=== PATIENT | female | born 1955 | race Caucasian/White ===

== ENCOUNTER → 2017-12-04 | Outpatient (CLI) | payer BC ==
[2017-12-04 16:00] LABS: HEMATOCRIT 43.2 % (36.0-47.0); HEMOGLOBIN 14.3 g/dl (12.0-16.0); MEAN CORPUSCULAR HEMOGLOBIN 29.4 pg (27.0-33.0); MEAN CORPUSCULAR HGB CONC 33.1 g/dl (32.0-36.5); MEAN CORPUSCULAR VOLUME 88.7 fl (80.0-96.0); PLATELET COUNT, AUTOMATED 252 10^3/uL (150-450); RED BLOOD COUNT 4.87 10^6/uL (4.00-5.40); RED CELL DISTRIBUTION WIDTH 12.8 % (11.5-14.5); WHITE BLOOD COUNT 6.2 10^3/uL (4.0-10.0)
[2017-12-04 16:29] LABS: C REACTIVE PROTEIN QUANTITATIV < 0.30 MG/DL (0.00-0.30); RHEUMATOID FACTOR QUANT < 10.0 IU/ML (0-15.0)
[2017-12-04 16:46] LABS: ERYTHROCYTE SEDIMENTATION RATE 5 mm/hr (0-30)
[2017-12-09 00:06] LABS: ANGIOTENSIN 1 CONVERTING ENZYM 36 U/L (14-82); ANTI DOUBLE STRAND-DNA AB <1 IU/mL (0-9); ANTINUCLEAR ANTIBODIES DIRECT Negative (Negative); Lyme Disease IgG/IgM Antibodie <0.91 ISR (0.00-0.90); Lyme Disease IgM Ab Quantitati <0.80 index (0.00-0.79); SJOGREN'S ANTI SS-A <0.2 AI (0.0-0.9); SJOGREN'S ANTI SS-B 0.2 AI (0.0-0.9); T PALLIDUM AB (FTA-AB) Non Reactive (Non Reactive)
== END ==
LOC: M LAB 15:08
DX: H15.009 Unspecified scleritis, unspecified eye (principal)
CPT/HCPCS: 71046

== ENCOUNTER → 2019-04-28 | Outpatient (CLI) | payer MEDICARE, BC ==
[~2019-04-28] MED LIST: ACET500T15 PO; CALC600T57 PO; COLA100C5 PO; OXYC1TAB23 PO; PERCOCET PO; PREV1CAP PO; SUCR1TAB56 PO; ZYRT10CA5 PO; vitamin d OR
--- NOTE | 2019-04-28 12:40 | REPMRS ---
Patient History The patient states she had a clinical breast exam in 09/2018. No known family history of cancer. Took unspecified hormones for 5 years. Digital Woman Screen Mammo: April 28, 2019 - Exam #: [id number] Bilateral CC and MLO view(s) were taken. Technologist: Maria L Escobar, Technologist Prior study comparison: August 28, 2016, digital woman screen mammo performed at [facility]. May 29, 2015, digital woman screen mammo performed at [facility]. April 15, 2014, digital woman screen mammo performed at [facility]. FINDINGS: There are scattered fibroglandular densities. There has been no change in the appearance of the mammogram from the prior studies. There is a mild amount of scattered fibroglandular density which is fairly symmetric. There is no interval development of dominant mass, architectural distortion, or grouped microcalcification suggestive of malignancy. 3-D tomosynthesis shows no additional findings. Assessment: BI-RADS/ACR category 1 mammogram. Negative Mammogram. Recommendation Routine screening mammogram of both breasts in 1 year (for women over age 40). This patient's Lifetime Breast Cancer Risk is estimated at 5.2 %. This mammogram was interpreted with the aid of an FDA-approved computer-aided dectection system. Electronically Signed By: French Elliott MD 04/28/19 1219
== END ==
LOC: M WHC 11:24
PROVIDERS: ATTEND Nurse Practitioner Family
DX: Z12.31 Encounter for screening mammogram for malignant neoplasm of breast (principal)

== ENCOUNTER → 2019-05-12 | Outpatient (CLI) | payer MEDICARE, BC ==
[2019-05-12 14:51] LABS: BASO % 0.5 % (0.0-1.0); EOS # 0.1 10^3/uL (0.0-0.50); EOS % 1.2 % (0.0-3.0); HEMOGLOBIN 14.2 g/dl (12.0-15.5); LYMPH # 1.7 10^3/uL (1.5-4.5); LYMPH % 30.1 % (24.0-44.0); MEAN CORPUSCULAR HEMOGLOBIN 30.1 pg (27.0-33.0); MEAN CORPUSCULAR HGB CONC 32.3 g/dl (32.0-36.5); MEAN CORPUSCULAR VOLUME 93.4 fl (80.0-96.0); MONO # 0.6 10^3/uL (0.0-0.8); NEUTROPHILS # 3.3 10^3/uL (1.8-7.7); PLATELET COUNT, AUTOMATED 219 10^3/uL (150-450); RED BLOOD COUNT 4.71 10^6/uL (4.00-5.40); WHITE BLOOD COUNT 5.6 10^3/uL (4.0-10.0)
[2019-05-12 15:25] LABS: ERYTHROCYTE SEDIMENTATION RATE 3 mm/hr (0-30)
[2019-05-12 15:35] LABS: ALBUMIN 4.2 GM/DL (3.2-5.2); ALT/SGPT 25 U/L (12-78); BILIRUBIN,TOTAL 0.5 MG/DL (0.2-1.0); BLOOD UREA NITROGEN 17 MG/DL (7-18); C REACTIVE PROTEIN QUANTITATIV < 0.30 MG/DL (0.00-0.30); CALCIUM LEVEL 8.8 MG/DL (8.8-10.2); CARBON DIOXIDE LEVEL 29 MEQ/L (21-32); CHLORIDE LEVEL 108 MEQ/L (98-107); GLOMERULAR FILTRATION RATE > 60.0 (>45); GLUCOSE, FASTING 80 MG/DL (70-100); POTASSIUM SERUM 3.9 MEQ/L (3.5-5.1); RHEUMATOID FACTOR QUANT < 10.0 IU/ML (<15.0); SODIUM LEVEL 142 MEQ/L (136-145); TOTAL PROTEIN 7.2 GM/DL (6.4-8.2); URIC ACID 3.9 MG/DL (2.6-6.0)
--- NOTE | 2019-05-12 15:49 | REP ---
Right hand four views: There is joint space narrowing with a variable osteophyte growth at the MCP joints of the index, middle and ring fingers. The PIP and DIP articulations and carpal articulations are unremarkable. This pattern of joint space narrowing is nonspecific and may represent a mixed arthropathy. Mineralization is normal. There are no calcifications. Impression: Joint space narrowing as described. Left hand four views: There is joint space narrowing with variable osteophytic growth of the index, middle and ring fingers and fifth digit. Mineralization is normal. There are no calcifications. The PIP, DIP and carpal joint spaces are unremarkable. Impression: Nonspecific joint space narrowing. This may represent a mixed arthropathy. Electronically Signed by Hector Easton MD 05/12/2019 03:41 P
--- NOTE | 2019-05-12 15:52 | REP ---
Right knee five views : There is no fracture or dislocation. Mineralization and joint spaces are normal. There are no calcifications or foreign bodies. Impression: Negative right knee . Electronically Signed by Hector Easton MD 05/12/2019 03:44 P
--- NOTE | 2019-05-12 15:52 | REP ---
Bilateral knees AP standing view: There is no joint space narrowing of the medial or lateral compartments on the right or the left. Mineralization is normal. There are no calcifications. Impression: Negative AP standing view of both knees. Electronically Signed by Hector Easton MD 05/12/2019 03:44 P
--- NOTE | 2019-05-12 16:22 | REP ---
HISTORY: History of arthritis. There is mild bilateral inferior sacroiliac joint marginal osteophytosis. The SI joints are nonfused and there is no abnormal whiskering. IMPRESSION: Chronic changes as described above. Electronically Signed by Deepak Lino DO 05/12/2019 04:23 P
[2019-05-20 00:06] LABS: ANA (HEP2) Positive (.); ANGIOTENSIN 1 CONVERTING ENZYM 37 U/L (14-82); CYCLIC CITRULLINATED PEPTIDE 5 units (0-19); HLA-B27 Negative (.); Lyme Disease IgG/IgM Antibodie <0.91 ISR (0.00-0.90); Lyme Disease IgM Ab Quantitati <0.80 index (0.00-0.79)
== END ==
LOC: M LAB 14:06
PROVIDERS: ATTEND Internal Medicine Rheumatology
DX: M19.041 Primary osteoarthritis, right hand (principal); M19.042 Primary osteoarthritis, left hand; Z79.899 Other long term (current) drug therapy
CPT/HCPCS: 36415; 72202; 73130; 73564; 80053; 81374; 82164; 84550; 85025; 85652; 86038; 86140; 86200; 86256; 86431; 86480; 86617; G0463

== ENCOUNTER → 2019-05-26 | Outpatient (CLI) | payer MEDICARE, BC | LOC: M LAB 12:12 | PROVIDERS: ATTEND Internal Medicine Rheumatology | DX: H15.002 Unspecified scleritis, left eye (principal) | CPT/HCPCS: 36415; 86256; G0463 ==

== ENCOUNTER → 2020-03-24 | Outpatient (CLI) | payer MEDICARE, BC ==
[~2020-03-24] MED LIST changes: +ECOT81TA5 PO; +ESTR10TA VG; +GABA-282 PO; +GNP250TA9 PO; +MONT10TA10 PO; +SERT25TA21 PO; -vitamin d OR; +vitamin d PO
[2020-03-24 13:58] LABS: BASO # 0.1 10^3/uL (0.0-0.2); EOS # 0.1 10^3/uL (0.0-0.5); EOS % 1.6 % (0.0-3.0); HEMATOCRIT 44.1 % (36.0-47.0); HEMOGLOBIN 13.9 g/dl (12.0-15.5); LYMPH # 1.9 10^3/uL (1.5-5.0); MEAN CORPUSCULAR HGB CONC 31.5 g/dl (32.0-36.5); MEAN CORPUSCULAR VOLUME 91.9 fl (80.0-96.0); MONO # 0.6 10^3/uL (0.0-0.8); MONO % 11.8 % (0.0-5.0); NEUTROPHILS # 2.6 10^3/uL (1.5-8.5); NEUTROPHILS % 49.4 % (36.0-66.0); PLATELET COUNT, AUTOMATED 226 10^3/uL (150-450); WHITE BLOOD COUNT 5.2 10^3/uL (4.0-10.0)
[2020-03-24 14:04] LABS: ALT/SGPT 30 U/L (12-78); BILIRUBIN,TOTAL 0.4 MG/DL (0.2-1.0); BLOOD UREA NITROGEN 14 MG/DL (7-18); C REACTIVE PROTEIN QUANTITATIV < 0.30 MG/DL (0.00-0.30); CALCIUM LEVEL 8.9 MG/DL (8.8-10.2); CARBON DIOXIDE LEVEL 30 MEQ/L (21-32); CHLORIDE LEVEL 109 MEQ/L (98-107); CPK CREATINE PHOSPHOKINASE 114 U/L (26-192); CREATININE FOR GFR 0.64 MG/DL (0.55-1.30); FERRITIN 79 NG/ML (8-252); GLOMERULAR FILTRATION RATE > 60.0 (>45); GLUCOSE, FASTING 91 MG/DL (70-100); IRON (FE) 73 UG/DL (50-170); MAGNESIUM LEVEL 2.3 MG/DL (1.8-2.4); PHOSPHORUS LEVEL 2.9 MG/DL (2.5-4.9); POTASSIUM SERUM 4.7 MEQ/L (3.5-5.1); SODIUM LEVEL 142 MEQ/L (136-145); TOTAL PROTEIN 6.7 GM/DL (6.4-8.2)
[2020-03-24 14:11] LABS: TOTAL 25(OH) VITAMIN D 39.1 NG/ML (30.0-100.0)
[2020-03-24 14:12] LABS: FOLATE 11.9 NG/ML; VITAMIN B12 LEVEL 322 PG/ML
[2020-03-24 14:22] LABS: HEPATITIS B SURFACE ANTIGEN NEGATIVE (NEGATIVE)
[2020-03-24 14:28] LABS: ERYTHROCYTE SEDIMENTATION RATE 3 mm/hr (0-30)
[2020-03-24 14:50] LABS: HEPATITIS C VIRUS ABY INDEX 0.3 INDEX (<0.8)
[2020-03-27 23:09] LABS: HEPATITIS B CORE ANTIBODY IGG Negative (Negative)
== END ==
LOC: M PLALAB 09:59
PROVIDERS: ATTEND Internal Medicine
DX: M53.3 Sacrococcygeal disorders, not elsewhere classified (principal); M25.50 Pain in unspecified joint; G47.62 Sleep related leg cramps; Z79.899 Other long term (current) drug therapy
CPT/HCPCS: 36415; 80053; 82306; 82550; 82607; 82728; 82746; 83540; 83735; 84100; 85025; 85652; 86140; 86480; 86704; 86803; 87340; G0463

== ENCOUNTER → 2020-08-25 | Outpatient (CLI) | payer MEDICARE, BC ==
[~2020-08-25] MED LIST changes: -ECOT81TA5 PO; -ESTR10TA VG; -GABA-282 PO; -GNP250TA9 PO; -MONT10TA10 PO; -SERT25TA21 PO; +vitamin d OR; -vitamin d PO
--- NOTE | 2020-08-25 15:12 | REPMRS ---
Patient History The patient states she had a clinical breast exam in August 2020. No known family history of cancer. Took unspecified hormones for 5 years. 3D TOMOSYNTHESIS WAS PERFORMED. The Anitra Zuniga lifetime risk for breast cancer is 5.0%. Volpara breast density b. Digital Woman Screen Mammo: August 25, 2020 - Exam #: [id number] Bilateral CC and MLO view(s) were taken. Technologist: Leslie Guzman, Technologist Prior study comparison: April 28, 2019, bilateral digital woman screen mammo performed at [facility]. August 28, 2016, digital woman screen mammo performed at [facility]. FINDINGS: There are scattered fibroglandular densities. There has been no change in the appearance of the mammogram from the prior studies. There is a mild amount of residual fibroglandular tissue which is fairly symmetric. There is no interval development of dominant mass, architectural distortion, or clustered microcalcification suggestive of malignancy. Assessment: BI-RADS/ACR category 1 mammogram. Negative Mammogram. Recommendation Routine screening mammogram in 1 year (for women over age 40). This mammogram was interpreted with the aid of an FDA-approved computer-aided dectection system. Electronically Signed By: Hector Govea MD 08/25/20 [id number]
== END ==
LOC: M WHC 13:17
PROVIDERS: ATTEND Nurse Practitioner Family
DX: Z12.31 Encounter for screening mammogram for malignant neoplasm of breast (principal); Z92.29 Personal history of other drug therapy

== ENCOUNTER 2020-10-04 10:56 | Emergency (ER) | payer MEDICARE, BC ==
[~2020-10-04 10:56] MED LIST changes: -vitamin d OR; +vitamin d PO
[2020-10-04] MEDS ORDERED: GNP250TA9 PO (11:17)
[2020-10-04] MEDS ORDERED: GABA-843 PO (11:17)
[2020-10-04] MEDS ORDERED: ESTR10TA VG (11:17)
[2020-10-04] MEDS ORDERED: MONT5TAB2 PO (11:17)
--- NOTE | 2020-10-04 11:37 | REP ---
INDICATION: SHAKING, STUTTERING. COMPARISON: None. TECHNIQUE: Helical scanning is acquired. 5 mm axial images were reformatted. Coronal MPR images were generated. FINDINGS: Bone window settings demonstrate an intact bony calvarium. There is no evidence of skull fracture or incidental bony calvarial lesion. The visualized paranasal sinuses appear clear. No intraorbital abnormality is seen. On soft tissue window setting images; the lateral, third, and fourth ventricles are normal in size and position. Govea-white differentiation pattern is normal above and below the tentorium. There are is no evidence of intracranial hemorrhage. No mass, edema, infarction, or midline shift is seen. No extra-axial fluid collection is appreciated. There is mild vascular calcification at the skull base involving the distal internal carotid arteries bilaterally. IMPRESSION: Mild vascular calcification. Otherwise negative CT study of the brain.. <Electronically signed by French Elliott > 10/04/20 [id number]
[2020-10-04] MEDS ORDERED: SERT25TA21 PO (11:39)
[2020-10-04 11:50] LABS: BASO # 0.1 10^3/uL (0.0-0.2); BASO % 0.9 % (0.0-1.0); EOS # 0.1 10^3/uL (0.0-0.5); EOS % 1.4 % (0.0-3.0); HEMATOCRIT 45.8 % (36.0-47.0); HEMOGLOBIN 14.2 g/dl (12.0-15.5); LYMPH # 1.7 10^3/uL (1.5-5.0); LYMPH % 29.8 % (24.0-44.0); MEAN CORPUSCULAR HEMOGLOBIN 27.7 pg (27.0-33.0); MEAN CORPUSCULAR VOLUME 89.5 fl (80.0-96.0); MONO # 0.6 10^3/uL (0.0-0.8); MONO % 11.2 % (0.0-5.0); NEUTROPHILS # 3.2 10^3/uL (1.5-8.5); NEUTROPHILS % 56.3 % (36.0-66.0); PLATELET COUNT, AUTOMATED 230 10^3/uL (150-450); RED BLOOD COUNT 5.12 10^6/uL (4.00-5.40); WHITE BLOOD COUNT 5.6 10^3/uL (4.0-10.0)
[2020-10-04 12:14] LABS: BLOOD UREA NITROGEN 18 MG/DL (7-18); CALCIUM LEVEL 9.3 MG/DL (8.8-10.2); CARBON DIOXIDE LEVEL 29 MEQ/L (21-32); CHLORIDE LEVEL 108 MEQ/L (98-107); CREATININE FOR GFR 0.81 MG/DL (0.55-1.30); GLOMERULAR FILTRATION RATE > 60.0 (>45); GLUCOSE, FASTING 81 MG/DL (70-100); POTASSIUM SERUM 5.6 MEQ/L (3.5-5.1); SODIUM LEVEL 137 MEQ/L (136-145)
--- NOTE | 2020-10-04 15:57 | REPVR ---
PROCEDURE INFORMATION: Exam: MR Head Without Contrast Exam date and time: 10/04/2020 2:56 PM Age: 65 years old Clinical indication: Speech disturbance; Patient HX: Slurred speech and aphasia that has since subsided; Additional info: Speech distrubance memory loss R/O CVA TECHNIQUE: Imaging protocol: MR of the head without contrast. COMPARISON: CT Head without contrast 10/04/2020 11:15 AM FINDINGS: Brain: There is no acute intracranial hemorrhage, cerebral edema, or midline shift. No restricted diffusion is present to suggest acute infarction. Mild chronic small vessel ischemic disease is noted in the periventricular white matter. Cerebral ventricles: No hydrocephalus. Bones/joints: Unremarkable. Paranasal sinuses: Normal as visualized. No acute sinusitis. Mastoid air cells: Normal as visualized. No mastoid effusion. Orbits: Unremarkable. Soft tissues: Unremarkable. IMPRESSION: No acute intracranial abnormality. Electronically signed by: Rayray Avila On 10/04/2020 15:56:58 PM
--- NOTE | 2020-10-04 16:04 | REPVR ---
PROCEDURE INFORMATION: Exam: MR Angiogram Head Without Contrast, Arteries Exam date and time: 10/04/2020 2:56 PM Age: 65 years old Clinical indication: Speech disturbance; Patient HX: Slurred speech and aphasia that has since subsided; Additional info: Speech distrubance memory loss R/O CVA TECHNIQUE: Imaging protocol: MR angiogram head without contrast. Exam focused on the arteries. 3D rendering (Not supervised by radiologist): MIP and/or 3D reconstructed images were created by the technologist. COMPARISON: CT Head without contrast 10/04/2020 11:15 AM FINDINGS: ANTERIOR CIRCULATION: Right internal carotid artery: Intracranial segment is patent with no significant stenosis. No aneurysm. Right middle cerebral artery: No occlusion or significant stenosis. No aneurysm. Right anterior cerebral artery: No occlusion or significant stenosis. No aneurysm. Left internal carotid artery: Intracranial segment is patent with no significant stenosis. No aneurysm. Left middle cerebral artery: No occlusion or significant stenosis. No aneurysm. Left anterior cerebral artery: No occlusion or significant stenosis. No aneurysm. POSTERIOR CIRCULATION: Right vertebral artery: No occlusion or significant stenosis. No aneurysm. 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 Right posterior cerebral artery: There is persistent origin of the right posterior cerebral artery. Left posterior cerebral artery: No occlusion or significant stenosis. No aneurysm. IMPRESSION: No acute abnormality. Electronically signed by: Rayray Avila On 10/04/2020 16:04:14 PM
[2020-10-04] MEDS ORDERED: ECOT81TA5 PO (16:20)
[2020-10-04 17:00] VITALS: BP 146/93
--- NOTE | 2020-10-05 13:17 | ECGEPIP ---
[facility] - ED Test Date: 2020-10-04 Pat Name: LINDA ZAMBRANO Department: Room: - Gender: Female Audio Director: : 1955 Requested By: Alicia Mcleod Order Number: [id number] Reading MD: Alexander Mckeon Measurements Intervals [place] Rate: 69 P: 51 TX: 152 QRS: 10 QRSD: 88 T: 43 QT: 391 QTc: 421 Interpretive Statements SINUS RHYTHM POOR R WAVE PROGRESSION NO PRIORS FOR COMPARISON Electronically Signed on 10-05-2020 13:16:43 EST by Alexander Mckeon
== END 2020-10-04 17:30 | disposition home or self-care (01) ==
LOC: M ED 10:56
DX: F98.5 Adult onset fluency disorder (principal); M19.90 Unspecified osteoarthritis, unspecified site; Z79.899 Other long term (current) drug therapy; Z79.82 Long term (current) use of aspirin; Z88.5 Allergy status to narcotic agent; Z87.891 Personal history of nicotine dependence

== ENCOUNTER → 2021-08-28 | Outpatient (CLI) | payer MEDICARE, BC ==
[~2021-08-28] MED LIST changes: +ECOT81TA5 PO; +ESTR10TA VG; +GABA-282 PO; +GNP250TA9 PO; +MONT10TA10 PO; +SERT25TA21 PO
--- NOTE | 2021-08-28 12:03 | REPMRS ---
Patient History The patient states she had a clinical breast exam in August 2021. No known family history of cancer. Took unspecified hormones for 5 years. Tomosynthesis is performed. Volpara breast density is b. [facility] lifetime risk of breast cancer 4.7%. Patient states no breast complaints today. Patient has signed MRS History Sheet. Digital Woman Screen Mammo: August 28, 2021 - Exam #: [id number] Bilateral CC and MLO view(s) were taken. Technologist: Leslie Guzman, Technologist Prior study comparison: August 25, 2020, bilateral digital woman screen mammo performed at [facility]. April 28, 2019, bilateral digital woman screen mammo performed at [facility]. FINDINGS: The breast tissue is heterogeneously dense. This may lower the sensitivity of mammography. There has been no change in the appearance of the mammogram from the prior studies. There is a moderate amount of residual fibroglandular tissue which is fairly symmetric. There is no interval development of dominant mass, areas of architectural distortion, or clustered microcalcification typical of malignancy. Assessment: BI-RADS/ACR category 1 mammogram. Negative Mammogram. Recommendation Routine screening mammogram in 1 year (for women over age 40). This mammogram was interpreted with the aid of an FDA-approved computer-aided dectection system. Electronically Signed By: Hector Govea MD 08/28/21 [id number]
== END ==
LOC: M WHC 09:42
PROVIDERS: ATTEND Nurse Practitioner Women's Health
DX: Z12.31 Encounter for screening mammogram for malignant neoplasm of breast (principal); Z92.29 Personal history of other drug therapy
CPT/HCPCS: 77063; 77067; G0463

== ENCOUNTER → 2022-12-03 | Outpatient (CLI) | payer MEDICARE, BC ==
[~2022-12-03] MED LIST changes: -MONT10TA10 PO; +MONT10TA97 PO
== END ==
LOC: M WHC 10:24
PROVIDERS: ATTEND Orthopaedic Surgery
DX: M85.851 Other specified disorders of bone density and structure, right thigh (principal); M85.852 Other specified disorders of bone density and structure, left thigh; M85.88 Other specified disorders of bone density and structure, other site; M48.061 Spinal stenosis, lumbar region without neurogenic claudication; M54.50 Low back pain, unspecified; M81.0 Age-related osteoporosis without current pathological fracture

== ENCOUNTER → 2023-01-14 | Outpatient (CLI) | payer MEDICARE, BC | LOC: M PLAIMG 14:24 | PROVIDERS: ATTEND Orthopaedic Surgery | DX: M48.02 Spinal stenosis, cervical region (principal) ==

== ENCOUNTER 2023-12-01 07:29 | Day surgery (SDC) | payer MEDICARE, BC ==
[~2023-12-01] VITALS: Ht 162.6 cm; Wt 64.3 kg
[~2023-12-01 07:29] MED LIST changes: +ALEN70TA82 PO; +ASPI81CH33 PO; +EQL50TAB2 PO; +FAMO40TA3 PO; +GNPTAB36 PO; +LANS30CA93 PO; +PRIM50TA6 PO; +SERT50TA29 PO; +VITA100093 PO
[2023-12-01] MEDS: NS 1,000 ML IV ONE (07:55)
[2023-12-01] MEDS ORDERED: propofoL 200 MG/20 ML VIAL As Ordered ONE (07:57)
[2023-12-01] MEDS ORDERED: LIDOCAINE 2% 100MG/5ML SDV (FOR ANES.) As Ordered ONE (07:57)
[2023-12-01] MEDS ORDERED: fentaNYL 100 MCG/2 ML INJECTION As Ordered ONE (07:58)
[2023-12-01 09:33] VITALS: TEMP 97.7
[2023-12-01 09:49] VITALS: BP 137/66; O2SAT 96
== END 2023-12-01 10:00 | disposition home or self-care (01) ==
LOC: M OPP 07:29
PROVIDERS: ATTEND Internal Medicine Gastroenterology
DX: Z12.11 Encounter for screening for malignant neoplasm of colon (principal); Z80.0 Family history of malignant neoplasm of digestive organs; K64.0 First degree hemorrhoids; D37.4 Neoplasm of uncertain behavior of colon; K22.89 Other specified disease of esophagus; K44.9 Diaphragmatic hernia without obstruction or gangrene; K31.89 Other diseases of stomach and duodenum; R12 Heartburn; Z79.1 Long term (current) use of non-steroidal anti-inflammatories (NSAID); Z79.82 Long term (current) use of aspirin; Z79.83 Long term (current) use of bisphosphonates; Z79.891 Long term (current) use of opiate analgesic; Z79.899 Other long term (current) drug therapy; Z88.5 Allergy status to narcotic agent
CPT/HCPCS: 43239; 45385; 88305; J3010

== ENCOUNTER → 2024-05-25 | Outpatient (CLI) | payer MEDICARE, BC | LOC: M WHC 11:25 | PROVIDERS: ATTEND Internal Medicine | DX: Z12.31 Encounter for screening mammogram for malignant neoplasm of breast (principal); R92.323 Mammographic fibroglandular density, bilateral breasts ==

== ENCOUNTER → 2024-06-15 | Outpatient (CLI) | payer MEDICARE, BC ==
[2024-06-15 12:00] LABS: BLOOD UREA NITROGEN 21 MG/DL (9-23); CREATININE FOR GFR 0.59 MG/DL (0.55-1.30); GLOMERULAR FILTRATION RATE > 60.0 (>39)
== END ==
LOC: M LAB 10:44
PROVIDERS: ATTEND Psychiatry & Neurology Neurology
DX: I10 Essential (primary) hypertension (principal)

== ENCOUNTER → 2025-02-21 | Outpatient (CLI) | payer MEDICARE, BC ==
[~2025-02-21] MED LIST changes: +GABA-1172 PO; -GABA-282 PO
== END ==
LOC: M WHC 13:06
PROVIDERS: ATTEND Internal Medicine
DX: M81.0 Age-related osteoporosis without current pathological fracture (principal)

== ENCOUNTER 2025-10-15 09:44 | Emergency (ER) | payer MEDICARE, BC ==
[~2025-10-15] VITALS: Ht 165.1 cm; Wt 66.6 kg
[~2025-10-15 09:44] MED LIST changes: -EQL50TAB2 PO; +VITA1TAB82 PO
[2025-10-15 12:13] VITALS: BP 157/84; TEMP 97.2; O2SAT 99
== END 2025-10-15 12:16 | disposition home or self-care (01) ==
LOC: M ED 09:44
DX: M17.12 Unilateral primary osteoarthritis, left knee (principal); M23.307 Other meniscus derangements, unspecified meniscus, left knee; Z88.5 Allergy status to narcotic agent; Z79.1 Long term (current) use of non-steroidal anti-inflammatories (NSAID); Z79.899 Other long term (current) drug therapy